=== PATIENT | male | born 1985 | race Caucasian/White ===

== ENCOUNTER 2022-02-13 06:00 | Outpatient (CLI) | payer OTHER ==
--- NOTE | 2022-02-13 16:47 | XRAY Report ---
PROCEDURE: Shoulder 3 View RT INDICATIONS: RIGHT SHOULDER PAIN TECHNIQUE: Views of the location were acquired. COMPARISON: None. FINDINGS: Bones: No fractures or dislocations. No suspicious bony lesions. Soft tissues: No suspicious soft tissue calcifications. IMPRESSION: Normal right shoulder Reviewed by: Gokul Woods on 02/13/2022 4:46 PM PDT Approved by: Gokul Woods on 02/13/2022 4:46 PM PDT Station ID: [id number]
== END 2022-02-13 23:59 | disposition home or self-care (01) ==
LOC: DI.WOS 06:00
PROVIDERS: ATTEND Physician Assistant
DX: M25.511 Pain in right shoulder (principal)

== ENCOUNTER 2022-07-28 10:24 | Outpatient (CLI) | payer OTHER ==
[2022-07-28 11:02] VITALS: BP 114/72
--- NOTE | 2022-07-28 11:02 | SLEEP CARE CONSULTATION ---
Information from patient questionnaire entered by Yadira Meier. I have reviewed and concur with the information entered by Yadria Meier. This document represents the service I personally performed and the decisions made by me, Breanna Gibbons ARNP. History of Present Illness Service Date and Time: 07/28/2022 1024 Reason for Visit: New patient Chief Complaint: reports: Unrefreshed sleep, Snoring, Excessive daytime sleepiness, Observed pauses in breathing Date of Onset: 15 years Usual bedtime: 10pm Time it takes to fall asleep: 15-60min Snores at night: Yes Observed to quit breathing while asleep: Yes Sleeps alone due to snoring: No Number of times waking at night: 3-4 Reasons for waking at night: reports: Snoring, Gasping for air, Other (unknown). denies: Choking Toss, Turn, or Twitch while sleeping: Yes Recalls having dreams: Yes Usually gets out of bed at: 5-530 am; weekends 7-8 on avg Feels refreshed in the morning: No Morning headache: No Sleepy or fatigued during the day: Yes Ever fallen asleep while driving: Yes (drowsy driving; no accidents) Takes day naps: No Dreams during day naps: No Prior sleep studies: Yes Year and Where: 2014 [place] Type of Sleep Study: Home sleep study Additional HPI information: I had the pleasure of seeing ALINE BANUELOS today regarding the possibility of him having a sleep disorder. His current complaints are unrefreshed sleep, snoring, observed pauses in breathing and excessive daytime sleepiness. He states that his has recorded him stopping breathing when sleeping and gasping in his sleep. He wakes up not feeling rested. He states his snoring is really bad and his will wake him up to roll over. He states in 2014 he had a HST but was never called with those results. 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 Patient is and lives in [place]. Have you smoked in the past 12 months: No Alcohol use: Yes Alcohol amount and frequency: 1-2 drinks once a week Caffeine use: Yes Caffeine amount and frequency: coffee everyday Family History Family history of sleep disordered breathing: No Family Hx Sleep Apnea: Mother: Snoring, Father: Snoring Allergies and Home Medications Known drug allergies: No Drug allergies reviewed: Yes (NKDA) Home medication list reviewed: Yes (no daily medications) Review of Systems Weight gain over past 5 years: 15 Cardiovascular: denies: high blood pressure Gastrointestinal: denies: heartburn Neurological: denies: headaches, head trauma Psychiatric: denies: anxiety, depression Ear/Nose/Throat: reports: nose bleeds (when dry), tonsillectomy, wisdom teeth removed Musculoskeletal: reports: back pain Immunologic: reports: allergies to food or environment (seasonal) Physical Exam Vital signs obtained and entered by: Yadira August MA Blood Pressure: 114/72 (right arm) Cuff size: regular Heart Rate: 65 O2 Saturation: 91 Height: 6 ft 1 in Weight: 219 lb 12.8 oz Body Mass Index: 29.0 BMI Classification: Overweight Neck circumference: 16 Mouth and throat: normal Soft palate: normal Hard palate: normal Uvula: normal Uvula visualization: 50% Mallampati Class II Tongue: enlarged in size with teeth black on lateral edges Tonsils: absent bilaterally Neck: normal w/o lymphadenopathy or thyromegaly Heart: regular rate and rhythm Lungs: clear bilaterally Impression and Plan 1. Suspected Obstructive Sleep Apnea-Hypopnea Syndrome, as suggested by a history of loud and irregular snoring, observed cessation of breath while asleep, gasping or choking in sleep, frequent awakening during the night, unrefreshed sleep, cognitive impairment, and excessive daytime sleepiness. Narrow oropharynx and obesity are common predisposing factors for obstructive sleep apnea-hypopnea syndrome. I recommend proceeding to polysomnography to confirm the diagnosis and to assess severity. If the patient has significant sleep disordered breathing, a manual CPAP titration study will also be performed to find the optimal treatment pressure. I informed the patient of what the sleep studies involve and after some discussion, obtained agreement to proceed. The pathophysiology of obstructive sleep apnea-hypopnea syndrome was discussed with the patient and health risks of cardiovascular and cerebrovascular disease if not treated. Risks of drowsy driving discussed in detail and patient advised to avoid long distance driving and to puller out at the first sign of drowsiness. Patient agreed to plan. * Schedule polysomnography * Avoid long distance driving or driving when feeling sleepy. * Avoid alcohol, sedative and muscle relaxant around bedtime. * Attempt to lose weight. * Review instructions provided by trained office staff on how to prepare for the sleep study. * Return for follow-up after sleep study completed. Counseling Topics: Weight loss health impact Visit Type: In Office Time Spent with Patient (minutes): 30 Provider Statement: I spent 100% of the Face to Face Visit with the patient with greater than 50% spent counseling the patient and coordination of care.
== END 2022-07-28 10:25 | disposition home or self-care (01) ==
LOC: SC 10:24
PROVIDERS: ATTEND Nurse Practitioner Family
DX: R06.83 Snoring (principal); G47.8 Other sleep disorders; R06.81 Apnea, not elsewhere classified; G47.10 Hypersomnia, unspecified; E66.3 Overweight; Z68.29 Body mass index [BMI] 29.0-29.9, adult
CPT/HCPCS: 99203; 99212

== ENCOUNTER 2022-08-21 20:31 | Outpatient (CLI) | payer OTHER | END 2022-08-21 20:32 | disposition home or self-care (01) | LOC: SC 20:31 | PROVIDERS: ATTEND Nurse Practitioner Family | DX: R06.83 Snoring (principal); G47.8 Other sleep disorders; R06.81 Apnea, not elsewhere classified; G47.10 Hypersomnia, unspecified | CPT/HCPCS: 95810 ==

== ENCOUNTER 2022-12-20 11:05 | Outpatient (CLI) | payer OTHER ==
[2022-12-20 11:47] VITALS: BP 110/70
--- NOTE | 2022-12-20 11:47 | SLEEP CARE CONSULTATION ---
Information from patient questionnaire entered by Yadira Meier. I have reviewed and concur with the information entered by Yadira Meier. This document represents the service I personally performed and the decisions made by , Breanna Gibbons ARNP. History of Present Illness Service Date and Time: 12/20/2022 1105 Previous diagnosis: Mild, Other (Upper Airway Resistance Syndrome) AHI: 3.7 (RDI 5.1 (08/2022)) Reason for follow up: other (SIX WEEK F/U) Equipment type: CPAP (RESMED Airsense 11 s/u 09/2022) Equipment obtained from: [employer] ([employer] supplies) Mask style: Nasal Backup mask available: No Prior sleep studies: Yes Year and Where: 2014 [place] Type of Sleep Study: Polysomnography (COMPLETED 08/21/22) HPI additional information: ALINE BANUELOS was diagnosed to have mild, AHI 3.7 with RDI 5.1, upper airway resistance syndrome and returned today for CPAP therapy six week follow-up. Sleep Study - Results Type of Sleep Study: Polysomnography (COMPLETED 08/21/22) Prior sleep studies: Yes Year and Where: 2014 [place] CPAP Compliance Data - Data Reviewed with Patient Average duration of nightly device use: 4 hours 19 minutes Compliance rate %: 40 ( days used) Current pressure setting (cmH2O): 6-10 Average residual AHI: 0.6 Central apnea: 0.1 Obstructive apnea: 0.2 Subjective Missed days of use due to: reports: mask issues (mask cushion blocking nostril), other (fall asleep without mask) Patient concerns: reports: mask discomfort (blocked nasal cushion). denies: aerophagia, air blowing in eyes, mask leak noise, condensation in mask/hose, nasal congestion, dry mouth, nose, throat, epistaxis Observed to snore while using device: No Current pressure setting perceived as: comfortable On therapy, patient: reports: sleeping better, awakening more refreshed, being more awake and alert during the day, more rested overall. denies: drowsiness while driving Initial [place] Sleepiness Scale score: 15 (10-12-22) Current [place] Sleepiness Scale score: 10 (12/20/22) Allergies and Home Medications Known drug allergies: No Drug allergies reviewed: Yes Home medication list reviewed: Yes (no changes) Review of Systems Review of systems same as previous: Yes (no changes) Physical Exam Vital signs obtained and entered by: YADIRA August MA Blood Pressure: 110/70 (LEFT ARM) Cuff size: regular Heart Rate: 71 O2 Saturation: 96 Height: 6 ft 1 in Weight: 223 lb 12.8 oz Body Mass Index: 29.5 BMI Classification: Overweight Impression and Plan 1. Upper Airway Resistance Syndrome, mild, with fair treatment compliance and good apnea control. On CPAP therapy, the patient has better sleep quality and is more rested overall. He has been having problems with his nasal cushion. The dividing piece between the nostrils will slip over and block his nostril. This will wake him up and he takes the mask off. He has also occasionally fallen asleep without the mask. He would like to try a nasal pillows mask and did call his DME about this. He was told he could not get a new mask until March. I had Jeison, our lead system technologist, fit him with a Trai Nuance Pro nasal gel pillows mask. He found it very comfortable. A sample of the mask was sent home with the patient. I will have him follow up again in 1-2 months to recheck compliance and mask fit. Patient's apnea severity and rationale for treatment to reduce apnea, improve sleep quality and reduce cardiovascular and cerebrovascular events was reviewed. 2. Overweight, unspecified. Currently patients BMI is 29.5. Obesity increases the risk of apnea, CPAP pressure requirements and overall health risks especially cardiovascular and diabetes. Thus patient is advised to lose weight. * Continue auto CPAP pressure at 6-10 cmH2O * Mask sample sent home with patient * Notify me if snoring with mask or feeling that the pressure is too much or too little * Attempt to lose weight * Call this office if any problems using CPAP * Return for follow up in 1-2 months, or sooner if concerns arise Mask provided: Yes Counseling Topics: Spare mask, Weight loss health impact Visit Type: In Office Time Spent with Patient (minutes): 23 Provider Statement: I spent 100% of the Face to Face Visit with the patient with greater than 50% spent counseling the patient and coordination of care.
== END 2022-12-20 11:06 | disposition home or self-care (01) ==
LOC: SC 11:05
PROVIDERS: ATTEND Nurse Practitioner Family
DX: G47.8 Other sleep disorders (principal); E66.3 Overweight; Z68.29 Body mass index [BMI] 29.0-29.9, adult
CPT/HCPCS: 99212; 99213

== ENCOUNTER 2023-02-15 08:23 | Outpatient (CLI) | payer OTHER ==
--- NOTE | 2023-02-15 08:47 | Sleep Patient Instructions ---
Sleep Center Visit Summary - Patient Visit Information Reason for Visit: 2 month follow up for CPAP therapy - Patient Instructions Additional Instructions: You were here for follow up of CPAP therapy. You will be continued on CPAP therapy with pressure at 6-10 cmH2O. You should follow up with sleep care in 3 months. You may contact us sooner for any questions or concerns. - Clinic Information Contact: [facility] [address] [place] [address] [email or web address] T: [phone]
--- NOTE | 2023-02-15 08:52 | SLEEP CARE CONSULTATION ---
Information from patient questionnaire entered by Alona Meier. I have reviewed and concur with the information entered by Alona Meier. This document represents the service I personally performed and the decisions made by , Breanna Gibbons ARNP. History of Present Illness Service Date and Time: 02/15/2023 08 Previous diagnosis: Mild, Other (Upper Airway Resistance Syndrome) AHI: 3.7 (RDI 5.1 (08/2022)) Reason for follow up: other (2 MONTH F/U) Equipment type: CPAP (RESMED Airsense 11, s/u 09/2022) Equipment obtained from: [employer] (getting supplies) Mask style: Nasal (going back and forth with nasal pillows) Mask brand: Resmed (Airfit n30i) Backup mask available: Yes (other mask) Last cushion change: couple days ago Prior sleep studies: Yes Year and Where: 2014 [place] Type of Sleep Study: Polysomnography (COMPLETED 08/21/22) HPI additional information: ALINE BANUELOS was diagnosed to have mild, AHI 3.7 with RDI 5.1, upper airway resistance syndrome and returned today for CPAP therapy two month follow-up. Sleep Study - Results Type of Sleep Study: Polysomnography (COMPLETED 08/21/22) Prior sleep studies: Yes Year and Where: 2014 [place] CPAP Compliance Data - Data Reviewed with Patient Average duration of nightly device use: 5 hours 4 minutes Compliance rate %: 53 (46/60 days used) Current pressure setting (cmH2O): 6-10 Average residual AHI: 0.6 Central apnea: 0.1 Obstructive apnea: 0.3 Average large leak: 2.8 lpm Subjective Missed days of use due to: reports: family emergency (Father ill), other (falling asleep without it) Patient concerns: reports: aerophagia (sometimes in morning, sometimes throughout day). denies: mask discomfort, air blowing in eyes, mask leak noise, condensation in mask/hose, nasal congestion, dry mouth, nose, throat, epistaxis Observed to snore while using device: No Current pressure setting perceived as: comfortable On therapy, patient: reports: sleeping better, awakening more refreshed, being more awake and alert during the day, more rested overall. denies: drowsiness while driving Initial [place] Sleepiness Scale score: 15 (10-12-22) Current [place] Sleepiness Scale score: 6 (02/15/23) Allergies and Home Medications Known drug allergies: No Drug allergies reviewed: Yes Home medication list reviewed: Yes (no changes) Allergy and home medication list: Allergies No Known Drug Allergies Allergy (Verified 02/14/23 13:16) Review of Systems Review of systems same as previous: Yes (no changes) Physical Exam Vital signs obtained and entered by: ALONA Augsut MA Blood Pressure: 126/72 (LEFT ARM) Cuff size: regular Heart Rate: 65 O2 Saturation: 97 Height: 6 ft 1 in Weight: 223 lb 9.6 oz Body Mass Index: 29.5 BMI Classification: Overweight Impression and Plan 1. Upper Airway Resistance Syndrome, mild, with fair treatment compliance and good apnea control. On CPAP therapy, the patient has better sleep quality and is more rested overall. He likes the nasal pillows but the mask we fitted him to at his last visit has the hose in the front and it gets tangled up when he is sleeping. He likes the Airfit N30i headset. I suggested he change to the ResMed AirFit P30i which has similar headset and nasal pillows and he agreed. Patient has significant improvement of their sleep apnea and is satisfied with current CPAP therapy. Patient's apnea severity and rationale for treatment to reduce apnea, improve sleep quality and reduce cardiovascular and cerebrovascular events was reviewed. 2. Overweight, unspecified. Currently patients BMI is 29.5. Obesity increases the risk of apnea, CPAP pressure requirements and overall health risks especially cardiovascular and diabetes. Thus patient is advised to lose weight. * Continue auto CPAP pressure at 6-10 cmH2O * Change mask to ResMed Airfit P30i * Notify me if snoring with mask or feeling that the pressure is too much or too little * Attempt to lose weight * Call this office if any problems using CPAP * Return for follow up in 3 months, or sooner if concerns arise Counseling Topics: Spare mask, Weight loss health impact Visit Type: In Office Time Spent with Patient (minutes): 21 Provider Statement: I spent 100% of the Face to Face Visit with the patient with greater than 50% spent counseling the patient and coordination of care.
[2023-02-15 08:57] VITALS: BP 126/72
== END 2023-02-15 08:24 | disposition home or self-care (01) ==
LOC: SC 08:23
PROVIDERS: ATTEND Nurse Practitioner Family
DX: G47.8 Other sleep disorders (principal); E66.3 Overweight; Z68.29 Body mass index [BMI] 29.0-29.9, adult
CPT/HCPCS: 99212; 99213

== ENCOUNTER 2023-05-25 08:50 | Outpatient (CLI) | payer OTHER ==
--- NOTE | 2023-05-25 09:01 | Sleep Patient Instructions ---
Sleep Center Visit Summary - Patient Visit Information Reason for Visit: Three month follow up for PAP therapy - Patient Instructions Additional Instructions: You were here for follow up of CPAP therapy. You will be continued on CPAP therapy with pressure at 6-10 cmH2O. You should follow up with sleep care in 6 months. You may contact us sooner for any questions or concerns. - Clinic Information Contact: [facility] [address] [place] [address] [email or web address] T: [phone]
--- NOTE | 2023-05-25 09:04 | SLEEP CARE CONSULTATION ---
Information from patient questionnaire entered by Alona Meier. I have reviewed and concur with the information entered by Alona Meier. This document represents the service I personally performed and the decisions made by , Breanna Gibbons ARNP. History of Present Illness Service Date and Time: 05/25/2023 0850 Previous diagnosis: Mild, Other (Upper Airway Resistance Syndrome) AHI: 3.7 (RDI 5.1 (08/2022)) Reason for follow up: three month (F/U) Equipment type: CPAP (RESMED Airsense 11, s/u 09/2022) Equipment obtained from: [employer] (getting supplies) Mask style: Nasal (going back and forth with nasal pillows) Backup mask available: Yes (other mask) Last cushion change: 2 weeks Prior sleep studies: Yes Year and Where: 2014 [place] Type of Sleep Study: Polysomnography (COMPLETED 08/21/22) HPI additional information: ALINE BANUELOS was diagnosed to have mild, AHI 3.7 with RDI 5.1, upper airway resistance syndrome and returned today for CPAP therapy three month follow-up. Sleep Study - Results Type of Sleep Study: Polysomnography (COMPLETED 08/21/22) Prior sleep studies: Yes Year and Where: 2014 [place] CPAP Compliance Data - Data Reviewed with Patient Average duration of nightly device use: 5 hours 54 minutes Compliance rate %: 59 (64/90 days used) Current pressure setting (cmH2O): 6-10 Average residual AHI: 0.7 (RERA 0.3) Average large leak: 0.4 L/min Subjective Missed days of use due to: reports: travel (on ship, limited plugs to use for CPAP), other (falling asleep without mask on) Patient concerns: denies: aerophagia, mask discomfort, air blowing in eyes, mask leak noise, condensation in mask/hose, nasal congestion, dry mouth, nose, throat, epistaxis Observed to snore while using device: No Current pressure setting perceived as: comfortable On therapy, patient: reports: sleeping better, awakening more refreshed, being more awake and alert during the day, more rested overall. denies: drowsiness while driving Initial [place] Sleepiness Scale score: 15 (10-12-22) Current [place] Sleepiness Scale score: 4 (08/11/23) Allergies and Home Medications Known drug allergies: No Drug allergies reviewed: Yes Home medication list reviewed: Yes (no changes) Allergy and home medication list: Allergies No Known Drug Allergies Allergy (Verified 05/24/23 14:09) Review of Systems Review of systems same as previous: Yes (no changes) Physical Exam Vital signs obtained and entered by: ALONA August MA Blood Pressure: 108/70 (LEFT ARM) Cuff size: regular Heart Rate: 65 O2 Saturation: 98 Height: 6 ft 1 in Weight: 224 lb 6.4 oz Body Mass Index: 29.6 BMI Classification: Overweight Impression and Plan 1. Upper Airway Resistance Syndrome, mild, with fair treatment compliance and good apnea/upper airway control. On CPAP therapy, the patient has better sleep quality and is more rested overall. Patient was on the ship and unable to find an electrical outlet to use his CPAP which has reduced his compliance. Since getting back he has been able to use it more often. Patient has significant improvement of their sleep apnea and is satisfied with current CPAP therapy. Patient denies problems with oral dryness, nasal congestion, epistaxis, skin irritation or aerophagia. Patient's apnea severity and rationale for treatment to reduce apnea, improve sleep quality and reduce cardiovascular and cerebrovascular events was reviewed. 2. Overweight, unspecified. Currently patients BMI is 29.6. Obesity increases the risk of apnea, CPAP pressure requirements and overall health risks especially cardiovascular and diabetes. Thus patient is advised to lose weight. * Continue auto CPAP pressure at 6-10 cmH2O * Notify me if snoring with mask or feeling that the pressure is too much or too little * Attempt to lose weight * Call this office if any problems using CPAP * Return for follow up in 6 months, or sooner if concerns arise Counseling Topics: Weight loss health impact Visit Type: In Office Time Spent with Patient (minutes): 10 Provider Statement: I spent 100% of the Face to Face Visit with the patient with greater than 50% spent counseling the patient and coordination of care.
[2023-05-25 09:05] VITALS: BP 108/70; O2SAT 98
== END 2023-05-25 08:51 | disposition home or self-care (01) ==
LOC: SC 08:50
PROVIDERS: ATTEND Nurse Practitioner Family
DX: G47.8 Other sleep disorders (principal); E66.3 Overweight; Z68.29 Body mass index [BMI] 29.0-29.9, adult
CPT/HCPCS: 99212

== ENCOUNTER 2023-12-11 08:59 | Outpatient (CLI) | payer OTHER ==
--- NOTE | 2023-12-11 09:27 | Sleep Patient Instructions ---
Sleep Center Visit Summary - Patient Visit Information Reason for Visit: 6-month follow-up - Patient Instructions Additional Instructions: You were here for follow up of CPAP therapy. You will be continued on CPAP therapy with pressure at 6-10 cmH2O. Prescription for mask fitting to change to the pillow mask. You should follow up with sleep care in 12 months. You may contact us sooner for any questions or concerns. - Clinic Information Contact: [facility] [address] [place] [id number] [email or web address] T: [phone]
--- NOTE | 2023-12-11 09:34 | SLEEP CARE CONSULTATION ---
Information from patient questionnaire entered by Yadira Meier. I have reviewed and concur with the information entered by Yadira Meier. This document represents the service I personally performed and the decisions made by , Breanna Gibbons ARNP. History of Present Illness Service Date and Time: 12/11/2023 0859 Previous diagnosis: Mild, Other (Upper Airway Resistance Syndrome) AHI: 3.7 (RDI 5.1 (08/2022)) Reason for follow up: six month (MONTH F/U) Equipment type: CPAP (RESMED Airsense 11, s/u 09/2022) Equipment obtained from: [employer] [facility] [employer] (getting supplies) Mask style: Nasal (going back and forth with nasal pillows) Mask brand: Resmed Backup mask available: Yes Prior sleep studies: Yes Year and Where: 2014 [facility] Type of Sleep Study: Polysomnography (COMPLETED 08/21/22) HPI additional information: ALINE BANUELOS was diagnosed to have mild, AHI 3.7 with RDI 5.1, upper airway resistance syndrome and returned today for CPAP therapy six month follow-up. Sleep Study - Results Type of Sleep Study: Polysomnography (COMPLETED 08/21/22) Prior sleep studies: Yes Year and Where: 2014 [facility] CPAP Compliance Data - Data Reviewed with Patient Average duration of nightly device use: 6 HRS 7 MINS Compliance rate %: 66 (-12/05/23) Current pressure setting (cmH2O): 6-10 Average residual AHI: 0.6 Central apnea: 0.1 Obstructive apnea: 0.3 Average large leak: 0.3 L/min Subjective Missed days of use due to: reports: other (fell asleep before puting on) Patient concerns: reports: aerophagia. denies: mask discomfort, air blowing in eyes, mask leak noise, condensation in mask/hose, nasal congestion, dry mouth, nose, throat, epistaxis Observed to snore while using device: No Current pressure setting perceived as: comfortable On therapy, patient: reports: sleeping better, awakening more refreshed, being more awake and alert during the day, more rested overall. denies: drowsiness while driving Initial [place] Sleepiness Scale score: 15 (10-12-22) Current [place] Sleepiness Scale score: 10 Allergies and Home Medications Known drug allergies: No Drug allergies reviewed: Yes Home medication list reviewed: Yes (no changes) Allergy and home medication list: Allergies No Known Drug Allergies Allergy (Verified 12/07/23 10:31) Review of Systems Review of systems same as previous: No (high CO2 levels) Physical Exam Vital signs obtained and entered by: BREANNA TIM Blood Pressure: 141/84 Cuff size: regular Heart Rate: 72 O2 Saturation: 97 Height: 6 ft 1 in Weight: 226 lb 9.6 oz Body Mass Index: 29.9 BMI Classification: Overweight Impression and Plan 1. Upper Airway Resistance Syndrome, mild, with fair treatment compliance and good apnea control. On CPAP therapy, the patient has better sleep quality and is more rested overall. Patient states he is still waking up feeling draggy not quite rested until the last week. He was concerned that his oxygen levels were going low at night and he did follow-up with his primary provider, as I advised, who did blood work and told him everything looked normal. He has felt improvement of his restfulness in the last week but in the last couple of nights his machine seemed to ramp up quicker and was noisier, as noted by his . He does experience a little bit of aerophagia but states he says is not every morning or consistent. He will pay more attention and if it does become a problem he will let me know so that I can adjust his pressures. Patient also with like to switch to the nasal pillows mask as he tried a nasal pillows mask through our office and it worked well for him. He wants to change to the one that has the hose attachment at the top of the head. I will write for a mask change to the nasal pillows mask with the fitting as needed. 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 He agreed to plan. Patient's apnea severity and rationale for treatment to reduce apnea, improve sleep quality and reduce cardiovascular and cerebrovascular events was reviewed. 2. Overweight, unspecified. Currently patients BMI is 29.9. Obesity increases the risk of apnea, CPAP pressure requirements and overall health risks especially cardiovascular and diabetes. Thus patient is advised to lose weight. * Continue auto CPAP pressure at 6-10 cmH2O * Mask change to nasal pillows mask, mask fitting as needed * Deployment kit for next deployment * Notify me if snoring with mask or feeling that the pressure is too much or too little * Attempt to lose weight * Call this office if any problems using CPAP * Return for follow up in 12 months, or sooner if concerns arise Counseling Topics: Spare mask, Weight loss health impact Prescriptions: Other (mask change/fitting; deployment kit) Follow up with Sleep Care in: 1 year Visit Type: In Office Time Spent with Patient (minutes): 25 Provider Statement: I spent 100% of the Face to Face Visit with the patient with greater than 50% spent counseling the patient and coordination of care.
[2023-12-11 09:43] VITALS: BP 141/84; O2SAT 97
== END 2023-12-11 09:00 | disposition home or self-care (01) ==
LOC: SC 08:59
PROVIDERS: ATTEND Nurse Practitioner Family
DX: G47.8 Other sleep disorders (principal); E66.3 Overweight; Z68.29 Body mass index [BMI] 29.0-29.9, adult
CPT/HCPCS: 99212; 99213